=== PATIENT | female | born 1980 | race Caucasian/White ===

== ENCOUNTER 2018-01-01 09:22 | Emergency (ER) | payer SELFPAY ==
--- NOTE | 2018-01-01 10:06 | ER Document Report ---
HPI - HPI Patient complains to provider of: Right ankle injury Onset: Last week - Sunday Onset/Duration: Sudden Pain Level: 4 Context: 37-year-old smoker female inverted right ankle last week on Sunday. She has been using crutches and has not seen anybody for the injury. It is swollen and bruised painful lateral malleolus and proximal dorsal foot and plantar distal foot. No history of injury. Associated Symptoms: None Exacerbated by: Walking Relieved by: Denies Similar symptoms previously: No Recently seen / treated by doctor: No - ROS ROS below otherwise negative: Yes Systems Reviewed and Negative: Yes All other systems reviewed and negative - REPRODUCTIVE LMP: 12/03/17 Reproductive: DENIES: : Past Medical History - General Information source: Patient - Social History Smoking Status: Current Every Day Smoker Frequency of alcohol use: None Drug Abuse: None Lives with: Family Family History: Reviewed & Not Pertinent - Medical History Notes: lucinda yanes Past Surgical History: Reports: Hx Cholecystectomy - Immunizations Hx Diphtheria, Pertussis, Tetanus Vaccination: Yes Vertical Provider Document - CONSTITUTIONAL Agree With Documented VS: Yes Exam Limitations: No Limitations - INFECTION CONTROL TRAVEL OUTSIDE OF THE [place] IN LAST 30 DAYS: No - HEENT HEENT: Normocephalic - NECK Neck: Supple - RESPIRATORY O2 Sat by Pulse Oximetry: 98 - MUSCULOSKELETAL/EXTREMETIES Musculoskeletal/Extremeties: Tender, Edema, Eccymosis - lateral right malleolus dorsal mid and lateral right foot - NEURO Level of Consciousness: Awake, Alert Motor/Sensory: No Motor Deficit, No Sensory Deficit Notes: 2+ DP - DERM Integumentary: Warm, Dry Course - Re-evaluation Re-evalutation: 01/01/18 11:16 X-rays are negative per radiologist - Vital Signs Vital signs: Temp Pulse Resp BP Pulse Ox 98.5 F 77 14 116/76 98 01/01/18 09:28 01/01/18 09:28 01/01/18 09:28 01/01/18 09:28 01/01/18 09:28 Procedures - Immobilization Left Ankle Time completed: 11:17 Pre-Proc Neuro Vasc Exam: Normal Immobilizer type: Carlos wrap Performed by: PCT Post-Proc Neuro Vasc Exam: Normal Alignment checked and good: Yes Discharge - Discharge Clinical Impression: Right ankle sprain Condition: Good Disposition: HOME, SELF-CARE Instructions: Sprained Ankle ([facility]), Anti-Inflammatory Medication ([facility]), Carlos Wrap ([facility]), Use of Crutches ([facility]) Additional Instructions: Carlos wrap for comfort Ankle exercises as discussed Crutches See orthopedist if you continue to have problems Return to the emergency room any concerns Prescriptions: Ibuprofen [Motrin 800 mg Tablet] 800 mg PO Q8HP PRN #30 tablet PRN Reason: Forms: Return to Work Referrals: ZION HATFIELD MD [ACTIVE STAFF] - Follow up as needed
--- NOTE | 2018-01-01 10:58 | RADIOLOGY REPORT (SQ) ---
EXAM DESCRIPTION: ANKLE RIGHT COMPLETE; FOOT RIGHT COMPLETE COMPLETED DATE/TIME: 01/01/2018 10:38 am REASON FOR STUDY: inversion last sunday COMPARISON: None. NUMBER OF VIEWS: Six views. TECHNIQUE: AP, lateral, and oblique radiographic images acquired of the right foot and right ankle. LIMITATIONS: None. FINDINGS: MINERALIZATION: Normal. BONES: No acute fracture or dislocation. No worrisome bone lesions. JOINTS: No effusions. SOFT TISSUES: No soft tissue swelling. No foreign body. OTHER: No other significant finding. IMPRESSION: NEGATIVE STUDY OF THE RIGHT ANKLE. NO RADIOGRAPHIC EVIDENCE OF ACUTE INJURY. TECHNICAL DOCUMENTATION: JOB ID: [id number] [employer]- All Rights Reserved Reading location - IP/workstation name: [email or web address]
--- NOTE | 2018-01-01 10:58 | RADIOLOGY REPORT (SQ) ---
EXAM DESCRIPTION: ANKLE RIGHT COMPLETE; FOOT RIGHT COMPLETE COMPLETED DATE/TIME: 01/01/2018 10:38 am REASON FOR STUDY: inversion last sunday COMPARISON: None. NUMBER OF VIEWS: Six views. TECHNIQUE: AP, lateral, and oblique radiographic images acquired of the right foot and right ankle. LIMITATIONS: None. FINDINGS: MINERALIZATION: Normal. BONES: No acute fracture or dislocation. No worrisome bone lesions. JOINTS: No effusions. SOFT TISSUES: No soft tissue swelling. No foreign body. OTHER: No other significant finding. IMPRESSION: NEGATIVE STUDY OF THE RIGHT ANKLE. NO RADIOGRAPHIC EVIDENCE OF ACUTE INJURY. TECHNICAL DOCUMENTATION: JOB ID: [id number] [employer]- All Rights Reserved Reading location - IP/workstation name: [email or web address]
[2018-01-01 11:44] VITALS: BP 101/63
== END 2018-01-01 11:45 | disposition home or self-care (01) ==
LOC: ER 09:22
DX: S93.401A Sprain of unspecified ligament of right ankle, initial encounter (principal); S90.31XA Contusion of right foot, initial encounter; X50.0XXA Overexertion from strenuous movement or load, initial encounter; F17.200 Nicotine dependence, unspecified, uncomplicated
CPT/HCPCS: 99283

== ENCOUNTER → 2018-06-21 | Outpatient (CLI) | payer SELFPAY ==
--- NOTE | 2018-06-21 15:07 | RADIOLOGY REPORT (SQ) ---
EXAM DESCRIPTION: U/S [id number] TRNABD 1GES W/ODOP COMPLETED DATE/TIME: 06/21/2018 2:45 pm REASON FOR STUDY: ENCOUNTER FOR SUPERVISION OF OTHER NORMAL PREG, 1ST TRI Z34.81 ENCOUNTER FOR SUPR VSN OF NORMAL , FIRST TRIM COMPARISON: None. TECHNIQUE: Transvaginal static and realtime grayscale images acquired of the pelvis. Additional yasir cted spectral and color Doppler images recorded. All images stored on PACs. bHCG: Not available. LIMITATIONS: None. FINDINGS: UTERUS: No masses. No anomalies. GESTATIONAL SAC: Yes, mean diameter 3.0 cm. YOLK SAC: No. POLE: No. RIGHT ADNEXA: Ovary not identified. No adnexal free fluid. No adnexal masses. LEFT ADNEXA: Ovary not identified. No adnexal free fluid. No adnexal masses. FREE FLUID: None. OTHER: No other significant finding. IMPRESSION: POSSIBLE EARLY INTRAUTERINE . BHCG LEVEL NOT AVAILABLE FOR CORRELATION WITH US FINDINGS. CONSIDER F/U BHCG AND/OR ULTRASOUND FOR VERIFICATION AND TO EXCLUDE ECTOPIC . Trimester of : First - 0 to 13 weeks. TECHNICAL DOCUMENTATION: JOB ID: [id number] [employer]- All Rights Reserved Reading location - IP/workstation name: [email or web address]
== END ==
LOC: RAD 13:43
PROVIDERS: ATTEND Nurse Practitioner
DX: Z34.81 Encounter for supervision of other normal pregnancy, first trimester (principal)
CPT/HCPCS: 76801

== ENCOUNTER 2018-06-30 17:44 | Emergency (ER) | payer SELFPAY ==
[2018-06-30 17:51] VITALS: BP 110/61
[2018-06-30] MEDS ORDERED: NORMAL SALINE 1000 ML 1,000 ML IV ONE ×2 (18:33→20:39)
[2018-06-30] MEDS ORDERED: METOCLOPRAMIDE HCL 10 MG TABLET PO ONE (18:33)
--- NOTE | 2018-06-30 18:34 | ER Document Report ---
ED Medical Screen (RME) - General Chief Complaint: Vaginal Bleeding Stated Complaint: VAGINAL DISCHARGE Time Seen by Provider: 06/30/18 18:29 TRAVEL OUTSIDE OF THE [place]. IN LAST 30 DAYS: No - HPI Notes: 06/30/18 18:33 coming in vaginal bleeding brown discharge starting this morning care at the [facility] - Related Data Allergies/Adverse Reactions: Sulfa (Sulfonamide Antibiotics) Allergy (Verified 01/01/18 09:23) Past Medical History Renal/ Medical History: Denies: Hx Peritoneal Dialysis Past Surgical History: Reports: Hx Cholecystectomy - Immunizations Hx Diphtheria, Pertussis, Tetanus Vaccination: Yes Review of Systems - Review of Systems Constitutional: Other - Vaginal bleeding Physical Exam - Vital signs Vitals: Temp Pulse Resp BP Pulse Ox 98.2 F 79 15 110/61 100 06/30/18 17:50 06/30/18 17:50 06/30/18 17:50 06/30/18 17:50 06/30/18 17:50 - Respiratory Respiratory status: No respiratory distress Chest status: Nontender Breath sounds: Normal Chest palpation: Normal - Cardiovascular Rhythm: Regular Heart sounds: Normal auscultation Course - Vital Signs Vital signs: Temp Pulse Resp BP Pulse Ox 98.2 F 79 15 110/61 100 06/30/18 17:50 06/30/18 17:50 06/30/18 17:50 06/30/18 17:50 06/30/18 17:50 Doctor's Discharge - Discharge Referrals: ASHLI RUIZ, AIR BOATSWAIN [Primary Care Provider] - Follow up as needed
[2018-06-30 19:06] LABS: ABSOLUTE BASOPHILS # (AUTO) 0.1 10^3/uL (0.0-0.2); ABSOLUTE EOSINOPHILS # (AUTO) 0.3 10^3/uL (0.0-0.6); ABSOLUTE LYMPHOCYTES (AUTO) 2.6 10^3/uL (0.5-4.7); ABSOLUTE NEUT (AUTO) 6.7 10^3/uL (1.7-8.2); BASOPHILS % (AUTO) 0.6 % (0-2); EOSINOPHILS % (AUTO) 2.8 % (0-6); HEMATOCRIT 43.5 % (36.0-47.0); HEMOGLOBIN 14.7 g/dL (12.0-15.5); LYMPHOCYTES % (AUTO) 24.5 % (13-45); MEAN CORPUSCULAR HGB CONC 33.8 g/dL (32.0-36.0); MEAN CORPUSCULAR VOLUME 98 fl (80-97); MONOCYTES % (AUTO) 9.5 % (3-13); PLATELET COUNT 233 10^3/uL (150-450); RED BLOOD COUNT 4.45 10^6/uL (3.72-5.28); RED CELL DISTRIBUTION WIDTH 13.2 % (11.5-14.0); SEGMENTED NEUTROPHILS % (AUTO) 62.6 % (42-78); TOTAL CELLS COUNTED % (AUTO) 100 %; WHITE BLOOD COUNT 10.7 10^3/uL (4.0-10.5)
[2018-06-30 19:32] LABS: ALANINE AMINOTRANSFERASE 23 U/L (9-52); ALBUMIN 4.5 g/dL (3.5-5.0); ALKALINE PHOSPHATASE 38 U/L (38-126); ANION GAP 11 (5-19); ASPARTATE AMINO TRANSFERASE 17 U/L (14-36); BILIRUBIN,DIRECT 0.2 mg/dL (0.0-0.4); BILIRUBIN,TOTAL 0.5 mg/dL (0.2-1.3); BLOOD UREA NITROGEN 8 mg/dL (7-20); CALCIUM 9.6 mg/dL (8.4-10.2); CARBON DIOXIDE 27 mmol/L (22-30); CHLORIDE 104 mmol/L (98-107); GLUCOSE 83 mg/dL (75-110); LIPASE 92.4 U/L (23-300); POTASSIUM 3.8 mmol/L (3.6-5.0); SODIUM 141.9 mmol/L (137-145); TOTAL PROTEIN 7.4 g/dL (6.3-8.2)
--- NOTE | 2018-06-30 19:42 | RADIOLOGY REPORT (SQ) ---
EXAM DESCRIPTION: U/S OB TRANSVAGINAL W/O DOP COMPLETED DATE/TIME: 06/30/2018 7:19 pm REASON FOR STUDY: +preg bleeding COMPARISON: 06/21/2018. TECHNIQUE: Transvaginal static and realtime grayscale images acquired of the pelvis. Additional yasir cted spectral and color Doppler images recorded. All images stored on PACs. bHCG: Not available. LIMITATIONS: None. FINDINGS: UTERUS: No masses. No anomalies. GESTATIONAL SAC: Gestational sac measuring 2.9 cm. This correlates with an 8 week 0 day gestation. No pole or yolk sac identified. YOLK SAC: No. POLE: No. RIGHT ADNEXA: Ovary not identified. No adnexal free fluid. No adnexal masses. LEFT ADNEXA: Small cysts and follicles. No suspicious lesion. No adnexal free fluid. No adnexal masses. FREE FLUID: None. OTHER: No other significant finding. IMPRESSION: 1. Gestational sac with no associated yolk sac or pole. No change %period%since 06/21/2018. Presumed blighted ovum. Continued clinical followup is, however warranted. Trimester of : First - 0 to 13 weeks. TECHNICAL DOCUMENTATION: JOB ID: [id number] [employer]- All Rights Reserved Reading location - IP/workstation name: [email or web address]
[2018-06-30 20:02] LABS: APPEARANCE,URINE CLEAR; BILIRUBIN,URINE NEGATIVE (NEGATIVE); COLOR,URINE STRAW; GLUCOSE, URINE NEGATIVE (NEGATIVE); KETONES,URINE NEGATIVE (NEGATIVE); LEUKOCYTE ESTERASE,URINE NEGATIVE (NEGATIVE); NITRITE,URINE NEGATIVE (NEGATIVE); PROTEIN,URINE NEGATIVE (NEGATIVE); URINE SPECIFIC GRAVITY 1.003; UROBILINOGEN,URINE NEGATIVE mg/dL (<2.0)
[2018-06-30] MEDS ORDERED: ACETAMINOPHEN 325 MG TABLET PO ONE (20:39)
--- NOTE | 2018-06-30 21:21 | ER Document Report ---
ED GI/ - General Chief Complaint: Vaginal Bleeding Stated Complaint: VAGINAL DISCHARGE Time Seen by Provider: 06/30/18 18:29 Mode of Arrival: Ambulatory Information source: Patient Notes: She states she is presently about 8 weeks . Patient reports vaginal bleeding that started today. Patient states blood is older. And brown in color. Patient denies any urinary symptoms or fever. Patient does report some nausea and vomiting 2 episodes today. Patient does report some lower pelvic cramping. TRAVEL OUTSIDE OF THE [place] IN LAST 30 DAYS: No - HPI Patient complains to provider of: Pelvic pain, , Vaginal bleeding Onset: This morning Timing/Duration: Waxing and waning Quality of pain: Cramping Pain Level: 2 Context: Location: Pelvis Vaginal bleeding (Compared to normal period): Dark brown Menstrual period history: Associated symptoms: denies: Dysuria, Fever, Loss of appetite, Nausea, Urinary hesitancy, Urinary frequency, Urinary retention, Vomiting Exacerbated by: Denies Relieved by: Denies Similar symptoms previously: No Recently seen / treated by doctor: No - Related Data Allergies/Adverse Reactions: Sulfa (Sulfonamide Antibiotics) Allergy (Verified 01/01/18 09:23) Past Medical History - General Information source: Patient - Social History Smoking Status: Current Every Day Smoker Smoking Education Provided: Yes Frequency of alcohol use: None Drug Abuse: None Occupation: respiratory assistant Lives with: Spouse/Significant other Family History: Reviewed & Not Pertinent Patient has suicidal ideation: No Patient has homicidal ideation: No - Medical History Medical History: Negative Renal/ Medical History: Denies: Hx Peritoneal Dialysis Past Surgical History: Reports: Hx Cholecystectomy - Immunizations Hx Diphtheria, Pertussis, Tetanus Vaccination: Yes Review of Systems - Review of Systems Constitutional: No symptoms reported. denies: Fever EENT: No symptoms reported Cardiovascular: No symptoms reported. denies: Chest pain, Syncope, Dizziness, Lightheaded Respiratory: No symptoms reported Gastrointestinal: Abdominal pain, Nausea, Vomiting. denies: Diarrhea Genitourinary: No symptoms reported. denies: Dysuria, Discharge Female Genitourinary: , Vaginal bleeding Musculoskeletal: No symptoms reported. denies: Back pain Skin: No symptoms reported Hematologic/Lymphatic: No symptoms reported Neurological/Psychological: No symptoms reported Physical Exam - Vital signs Vitals: Temp Pulse Resp BP Pulse Ox 98.2 F 79 15 110/61 100 06/30/18 17:50 06/30/18 17:50 06/30/18 17:50 06/30/18 17:50 06/30/18 17:50 - General General appearance: Appears well, Alert In distress: None - Respiratory Respiratory status: No respiratory distress Chest status: Nontender Breath sounds: Normal. No: Rales, Rhonchi, Stridor, Wheezing Chest palpation: Normal - Cardiovascular Rhythm: Regular Heart sounds: S1 appreciated, S2 appreciated Murmur: No - Abdominal Inspection: Normal Distension: No distension Bowel sounds: Normal Tenderness: Tender - lower pelvic Organomegaly: No organomegaly - Genitourinary External exam: Normal Speculum exam: Cervix closed Vaginal bleeding: Mild - Back Back: Normal, Nontender. No: CVA tenderness - Extremities General upper extremity: Normal inspection, Normal ROM General lower extremity: Normal inspection, Normal ROM - Neurological Neuro grossly intact: Yes Cognition: Normal [place] Coma Scale Eye Opening: Spontaneous [place] Coma Scale Verbal: Oriented Michael Coma Scale Motor: Obeys Commands [place] Coma Scale Total: 15 - Psychological Associated symptoms: Normal affect, Normal mood - Skin Skin Temperature: Warm Skin Moisture: Dry Skin Color: Normal Course - Re-evaluation Re-evalutation: 07/01/18 Patient with a gestational sac noted on ultrasound but without any yolk sac or pole. Patient advised of concern about possible blighted ovum. Patient with quantitative hCG of over 14,000. Patient given a order for outpatient repeat hCG in 48 hours. Patient does have an appointment with her [employer] in 2 days for recheck. Hemodynamic stable and pain is manageable with Tylenol. Good return precautions given. - Vital Signs Vital signs: Temp Pulse Resp BP Pulse Ox 98.2 F 79 15 110/61 100 06/30/18 17:50 06/30/18 17:50 06/30/18 17:50 06/30/18 17:50 06/30/18 17:50 - Laboratory Result Diagrams: 06/30/18 18:53 06/30/18 18:53 Laboratory results interpreted by me: 06/30/18 06/30/18 06/30/18 18:53 18:53 19:25 WBC 10.7 H MCV 98 H Creatinine 0.51 L Beta HCG, Quant 93928.00 H Urine Blood SMALL H 06/30/18 21:57 Labs- Entire Visit 06/30/18 06/30/18 06/30/18 18:53 18:53 18:53 WBC 10.7 H RBC 4.45 Hgb 14.7 Hct 43.5 MCV 98 H MCH 33.0 MCHC 33.8 RDW 13.2 Plt Count 233 Seg Neutrophils % 62.6 Lymphocytes % 24.5 Monocytes % 9.5 Eosinophils % 2.8 Basophils % 0.6 Absolute Neutrophils 6.7 Absolute Lymphocytes 2.6 Absolute Monocytes 1.0 Absolute Eosinophils 0.3 Absolute Basophils 0.1 Sodium 141.9 Potassium 3.8 Chloride 104 Carbon Dioxide 27 Anion Gap 11 BUN 8 Creatinine 0.51 L Est GFR ( Amer) > 60 Est GFR (Non-Af Amer) > 60 Glucose 83 Calcium 9.6 Total Bilirubin 0.5 Direct Bilirubin 0.2 Neonat Total Bilirubin Not Reportable Neonat Direct Bilirubin Not Reportable Neonat Indirect Bili Not Reportable AST 17 ALT 23 Alkaline Phosphatase 38 Total Protein 7.4 Albumin 4.5 Lipase 92.4 Beta HCG, Quant 09884.00 H Total Beta HCG POSITIVE Urine Color Urine Appearance Urine pH Ur Specific [place] Urine Protein Urine Glucose (UA) Urine Ketones Urine Blood Urine Nitrite Urine Bilirubin Urine Urobilinogen Ur Leukocyte Esterase Urine WBC (Auto) Urine RBC (Auto) Urine Bacteria (Auto) Squamous Epi Cells Auto Urine Ascorbic Acid Epi Cells (Wet Prep) Bacteria (Wet Prep) Trichomonas (Wet Prep) Vaginal WBC Vaginal RBC Vaginal Yeast Blood Type A POSITIVE Rhogam Indicated RHOGAM NOT INDICATED 06/30/18 06/30/18 19:25 21:20 WBC RBC Hgb Hct MCV MCH MCHC RDW Plt Count Seg Neutrophils % Lymphocytes % Monocytes % Eosinophils % Basophils % Absolute Neutrophils Absolute Lymphocytes Absolute Monocytes Absolute Eosinophils Absolute Basophils Sodium Potassium Chloride Carbon Dioxide Anion Gap BUN Creatinine Est GFR ( Amer) Est GFR (Non-Af Amer) Glucose Calcium Total Bilirubin Direct Bilirubin Neonat Total Bilirubin Neonat Direct Bilirubin Neonat Indirect Bili AST ALT Alkaline Phosphatase Total Protein Albumin Lipase Beta HCG, Quant Total Beta HCG Urine Color STRAW Urine Appearance CLEAR Urine pH 7.0 Ur Specific [place] 1.003 Urine Protein NEGATIVE Urine Glucose (UA) NEGATIVE Urine Ketones NEGATIVE Urine Blood SMALL H Urine Nitrite NEGATIVE Urine Bilirubin NEGATIVE Urine Urobilinogen NEGATIVE Ur Leukocyte Esterase NEGATIVE Urine WBC (Auto) 1 Urine RBC (Auto) 0 Urine Bacteria (Auto) TRACE Squamous Epi Cells Auto 1 Urine Ascorbic Acid NEGATIVE Epi Cells (Wet Prep) 3+ EPITHELIALS SEEN Bacteria (Wet Prep) 4+ BACTERIA SEEN Trichomonas (Wet Prep) NO TRICHOMONAS SEEN Vaginal WBC 1+ WBCS SEEN Vaginal RBC 1+ RBCS SEEN Vaginal Yeast NO YEAST SEEN Blood Type Rhogam Indicated - Diagnostic Test Radiology reviewed: Reports reviewed Discharge - Discharge Clinical Impression: Vagina bleeding, Bacterial vaginosis, test positive Condition: Stable Disposition: HOME, SELF-CARE Instructions: Ectopic Precaution ([facility]), Vaginosis, Bacterial ([facility]) Additional Instructions: Return immediately for any new or worsening symptoms Followup with your primary care provider, call tomorrow to make a followup appointment Return to lab in 48 hours for repeat blood test. Let your primary doctor know that she had a repeat test performed. Keep your appointment on Sunday as scheduled. You will need a follow-up ultrasound to further evaluate status. Prescriptions: Metronidazole [Flagyl 500 mg Tablet] 500 mg PO BID #14 tablet Forms: Follow-Up Laboratory Testing, Smoking Cessation Education, Return to Work Referrals: ASHLI RUIZ, WALTER [NO LOCAL MD] - Follow [facility] as needed [facility] - 07/02/18
[2018-06-30 21:35] LABS: BACTERIA (WET MOUNT) 4+ BACTERIA SEEN; EPITHELIALS (WET MOUNT) 3+ EPITHELIALS SEEN; RBCS (WET MOUNT) 1+ RBCS SEEN; T.VAGINALIS (WET MOUNT) NO TRICHOMONAS SEEN; WBCS (WET MOUNT) 1+ WBCS SEEN; YEAST (WET MOUNT) NO YEAST SEEN
[2018-06-30 22:57] LABS: CHLAM PCR NOT DETECTED (NOT DETECT); GON PCR NOT DETECTED (NOT DETECT)
== END 2018-06-30 22:20 | disposition home or self-care (01) ==
LOC: ER 17:44
DX: O46.90 Antepartum hemorrhage, unspecified, unspecified trimester (principal); O23.599 Infection of other part of genital tract in pregnancy, unspecified trimester; B96.89 Other specified bacterial agents as the cause of diseases classified elsewhere; R10.2 Pelvic and perineal pain; O21.9 Vomiting of pregnancy, unspecified; O99.330 Smoking (tobacco) complicating pregnancy, unspecified trimester; Z3A.00 Weeks of gestation of pregnancy not specified; O26.899 Other specified pregnancy related conditions, unspecified trimester; Z88.2 Allergy status to sulfonamides
CPT/HCPCS: 99284; 96360; 96361; 86900; 86901; 36415; 87210; 84702; 83690; 85025; 80053; 81001; 87491; 87591; 76817; J7030

== ENCOUNTER 2019-04-07 09:05 | Emergency (ER) | payer SELFPAY ==
[2019-04-07 09:10] VITALS: BP 136/78
[2019-04-07] MEDS ORDERED: TETRACAINE HCL 0.5% OPH SOLN 4 ML ONE (10:02)
[2019-04-07] MEDS ORDERED: CIPROFLOXACIN HCL/DEXAMETH OTIC DROP 7.5 ML OT ONE (10:38)
[2019-04-07] MEDS ORDERED: ERYTHROMYCIN 0.5% OPH OINTMENT 3.5 GM (ER DISP) OD ONE (10:40)
--- NOTE | 2019-04-07 10:44 | ER Document Report ---
HPI - HPI Patient complains to provider of: Right eye irritation Time Seen by Provider: 04/07/19 10:11 Pain Level: 2 Context: Patient is a 38-year-old female presents to the emergency department for right eye Tatian. States she "knows I wear a lot of make-up" but is denying any injury or foreign body to her right eye. Patient states she does have a generalized foreign body sensation. States she was rubbing her eye last evening and something "may have fallen out." Patient's denying that she wears contact lens or glasses. States generalized photophobia in the right eye. Patient denies any discharge from the right eye states "minor tearing." - CONSTITUTIONAL Constitutional: DENIES: Fever, Chills - EENT EENT: REPORTS: Eye problems - right eye. DENIES: Sore Throat, Ear Pain - NEURO Neurology: DENIES: Headache, Weakness, Vision blurred, Dizzinesss / Vertigo - CARDIOVASCULAR Cardiovascular: DENIES: Chest pain - RESPIRATORY Respiratory: DENIES: Trouble Breathing, Coughing - GASTROINTESTINAL Gastrointestinal: DENIES: Abdominal Pain, Black / Bloody Stools - URINARY Urinary: DENIES: Dysuria, Urgency, Frequency - REPRODUCTIVE Reproductive: DENIES: :, Postmenopausal, Abnormal bleeding / discharge - MUSCULOSKELETAL Musculoskeletal: DENIES: Extremity pain Past Medical History - General Information source: Patient - Social History Smoking Status: Current Every Day Smoker Chew tobacco use (# tins/day): No Frequency of alcohol use: Social Drug Abuse: None Family History: Reviewed & Not Pertinent Patient has suicidal ideation: No Patient has homicidal ideation: No Renal/ Medical History: Denies: Hx Peritoneal Dialysis Past Surgical History: Reports: Hx Cholecystectomy - Immunizations Hx Diphtheria, Pertussis, Tetanus Vaccination: Yes Vertical Provider Document - CONSTITUTIONAL Agree With Documented VS: Yes Notes: GENERAL: Alert, interacts well. No acute distress. HEAD: Normocephalic, atraumatic. EYES: Pupils equal, round, and reactive to light. Extraocular movements intact and painless. No obvious conjunctival injection noted, no upper or lower eyelid erythema or swelling, no proptosis noted. ENT: Oral mucosa moist, tongue midline. NECK: Full range of motion. Supple. Trachea midline. LUNGS: Clear to auscultation bilaterally, no wheezes, rales, or rhonchi. No respiratory distress. HEART: Regular rate and rhythm. No murmur ABDOMEN: Soft, non-tender. Non-distended. Bowel sounds present in all 4 quadrants. EXTREMITIES: Moves all 4 extremities spontaneously. No edema, normal radial and dorsalis pedis pulses bilaterally. No cyanosis. BACK: no cervical, thoracic, lumbar midline tenderness. No saddle anesthesia, normal distal neurovascular exam. NEUROLOGICAL: Alert and oriented x3. Normal speech. cranial nerves II through XII grossly intact PSYCH: Normal affect, normal mood. SKIN: Warm, dry, normal turgor. No rashes or lesions noted. - INFECTION CONTROL TRAVEL OUTSIDE OF THE [place] IN LAST 30 DAYS: No Course - Re-evaluation Re-evalutation: 04/07/19 10:43 Floor seen stain revealed 2 different corneal abrasions 1 at 12:00, 1 at 2:00, 1 mm x 1 mm both above the iris. I did flip patient's right eyelid showed no obvious foreign bodies. Discussed use of antibiotic ointment And close return precautions should the discomfort not improve in 24 hours. Patient voices understanding, stable for discharge This medical record was dictated with voice recognizing software. There may be grammatical, syntax errors that are unintended. - Vital Signs Vital signs: Temp Pulse Resp BP Pulse Ox 98.4 F 103 H 18 136/78 H 95 04/07/19 09:09 04/07/19 09:09 04/07/19 09:09 04/07/19 09:09 04/07/19 09:09 Discharge - Discharge Clinical Impression: Corneal abrasion Qualifiers: Encounter type: initial encounter Laterality: right Qualified Code(s): S05.01XA - Injury of conjunctiva and corneal abrasion without foreign body, right eye, initial encounter Condition: Stable Disposition: HOME, SELF-CARE Instructions: Corneal Abrasion ([facility]) Additional Instructions: As we discussed you have been seen and treated in the emergency department for a corneal abrasion. This is a scratch on the outer part of your eye. Please make sure you are using antibiotic ointment as we discussed. Please also make sure you follow-up with your primary care provider. Should you continue with generalized pain despite antibiotic use you should return to the emergency room for repeat evaluation. Please also return to the emergency room for any other concerns. Prescriptions: Erythromycin Base [Erythromycin Oph 1 gm Oint Ud] 1 applic OD Q6 5 Days #1 tube Forms: Return to Work Referrals: YAO CARDENAS MD [Primary Care Provider] - Follow up as needed
== END 2019-04-07 10:49 | disposition home or self-care (01) ==
LOC: ER 09:05
DX: S05.01XA Injury of conjunctiva and corneal abrasion without foreign body, right eye, initial encounter (principal); H57.11 Ocular pain, right eye; H53.141 Visual discomfort, right eye; X58.XXXA Exposure to other specified factors, initial encounter; F17.200 Nicotine dependence, unspecified, uncomplicated
CPT/HCPCS: 99283; J3490

== ENCOUNTER 2020-06-02 09:12 | Emergency (ER) | payer SELFPAY ==
[2020-06-02 10:20] LABS: ABSOLUTE BASOPHILS # (AUTO) 0.1 10^3/uL (0.0-0.2); ABSOLUTE EOSINOPHILS # (AUTO) 0.1 10^3/uL (0.0-0.6); ABSOLUTE LYMPHOCYTES (AUTO) 2.6 10^3/uL (0.5-4.7); ABSOLUTE MONOCYTES (AUTO) 1.2 10^3/uL (0.1-1.4); ABSOLUTE NEUT (AUTO) 10.4 10^3/uL (1.7-8.2); BASOPHILS % (AUTO) 0.7 % (0-2); EOSINOPHILS % (AUTO) 0.9 % (0-6); HEMOGLOBIN 15.4 g/dL (12.0-15.5); LYMPHOCYTES % (AUTO) 18.2 % (13-45); MEAN CORPUSCULAR HEMOGLOBIN 33.5 pg (27.0-33.4); MEAN CORPUSCULAR VOLUME 96 fl (80-97); MONOCYTES % (AUTO) 8.4 % (3-13); PLATELET COUNT 253 10^3/uL (150-450); RED CELL DISTRIBUTION WIDTH 13.2 % (11.5-14.0); SEGMENTED NEUTROPHILS % (AUTO) 71.8 % (42-78); TOTAL CELLS COUNTED % (AUTO) 100 %; WHITE BLOOD COUNT 14.5 10^3/uL (4.0-10.5)
[2020-06-02 10:41] LABS: ALBUMIN 4.5 g/dL (3.5-5.0); ALKALINE PHOSPHATASE 90 U/L (38-126); ANION GAP 11 (5-19); ASPARTATE AMINO TRANSFERASE 51 U/L (14-36); BILIRUBIN,DIRECT 0.2 mg/dL (0.0-0.4); BILIRUBIN,TOTAL 1.1 mg/dL (0.2-1.3); BLOOD UREA NITROGEN 12 mg/dL (7-20); CALCIUM 10.1 mg/dL (8.4-10.2); CARBON DIOXIDE 21 mmol/L (22-30); CHLORIDE 101 mmol/L (98-107); GLUCOSE 102 mg/dL (75-110); POTASSIUM 3.7 mmol/L (3.6-5.0); TOTAL PROTEIN 7.6 g/dL (6.3-8.2)
[2020-06-02 10:55] LABS: APPEARANCE,URINE SLIGHTLY-CLOUDY; BILIRUBIN,URINE SMALL (NEGATIVE); COLOR,URINE AMBER; GLUCOSE, URINE NEGATIVE (NEGATIVE); KETONES,URINE 80 mg/dL (NEGATIVE); LEUKOCYTE ESTERASE,URINE NEGATIVE (NEGATIVE); NITRITE,URINE NEGATIVE (NEGATIVE); PROTEIN,URINE 100 mg/dL (NEGATIVE); URINE SPECIFIC GRAVITY 1.027
[2020-06-02] MEDS ORDERED: METOCLOPRAMIDE HCL INJ/PF 10 MG/2 ML SDV IV ONE (11:21)
[2020-06-02] MEDS ORDERED: DIPHENHYDRAMINE HCL 50 MG/ML VIAL IV ONE (11:21)
--- NOTE | 2020-06-02 11:27 | ER Document Report ---
ED General - General Chief Complaint: Nausea/Vomiting Stated Complaint: VOMITING Time Seen by Provider: 06/02/20 10:51 Primary Care Provider: YAO CARDENAS MD [Primary Care Provider] - Follow up as needed TRAVEL OUTSIDE OF THE [place] IN LAST 30 DAYS: No - HPI Notes: Patient is a 40-year-old female, G4, P2, first day last menstrual period February 07, who presents to the emergency department for evaluation of nausea and vomiting. She states she is been vomiting, she thought it was just morning sickness. She states that over the last 4 days she has had increased vomiting, it seems to be all the time. She states she really cannot keep anything down, she feels overall weak. She has had some loose stools. She denies any fevers or chills. She states she is had a burning pelvic pain ongoing since Sunday. She denies any vaginal bleeding. She states that she has not had any care as of yet. She states she needs to get the health department financial information about her household, and her boyfriend as of yet will not give her that information. She is taking her vitamin daily. - Related Data Allergies/Adverse Reactions: Sulfa (Sulfonamide Antibiotics) Allergy (Verified 04/07/19 09:07) Home Medications: vitamin Past Medical History - General Information source: Patient - Social History Smoking Status: Current Every Day Smoker Frequency of alcohol use: None Drug Abuse: None Family History: Reviewed & Not Pertinent Patient has homicidal ideation: No Renal/ Medical History: Denies: Hx Peritoneal Dialysis Past Surgical History: Reports: Hx Cholecystectomy - Immunizations Hx Diphtheria, Pertussis, Tetanus Vaccination: Yes Review of Systems - Review of Systems Constitutional: Weakness Gastrointestinal: See HPI Female Genitourinary: See HPI -: Yes All other systems reviewed and negative Physical Exam - Vital signs Vitals: Temp 98.7 F 06/02/20 09:13 - Notes Notes: This is a very timid appearing 40-year-old female, who appears her stated age, no acute distress. Vital signs reviewed, please refer to chart. Head is normocephalic, atraumatic. Pupils equal round, reactive to light. Neck is supple without meningismus. Heart is regular rate and rhythm. Lungs are clear to auscultation bilaterally. Abdomen is soft, nontender, normoactive bowel sounds throughout. Palpable uterine fundus above the pelvic bone without tenderness. Extremities without cyanosis, clubbing. Posterior calves are nonte nder. Peripheral pulses are equal. Skin is warm and dry. Patient is awake, alert, neurological exam is nonfocal. Course - Re-evaluation Re-evalutation: 06/02/20 11:26 Patient presents the emergency department for evaluation. Laboratory investigations were obtained. She does have ketones in her urine, findings consistent with poor oral intake. We will give her IV fluids. We will give her Reglan and Benadryl to help with her nausea. Will consult case management in regards to getting this patient the appropriate care she needs for her . At this point she is stable, we will continue to monitor. 06/02/20 15:03 Patient is imaging can firm C 16-week gestation. Her labs showed some dehydration, treated with IV fluids. Her nausea is improved with Reglan and Benadryl. Patient is advised she needs to quit smoking marijuana, as her drug screen was positive for this. She voiced understanding. Otherwise she is given instructions on follow-up as an outpatient with OB, and is to return to the ED with worsening. - Vital Signs Vital signs: Temp Pulse Resp BP Pulse Ox 98.7 F 80 16 114/80 99 06/02/20 09:37 06/02/20 09:37 06/02/20 09:37 06/02/20 09:37 06/02/20 09:37 - Laboratory Result Diagrams: 06/02/20 10:00 06/02/20 10:00 Laboratory results interpreted by me: 06/02/20 06/02/20 06/02/20 10:00 10:00 10:30 WBC 14.5 H MCH 33.5 H Absolute Neuts (auto) 10.4 H Sodium 133.2 L Carbon Dioxide 21 L Creatinine 0.43 L AST 51 H ALT 70 H Urine Protein 100 H Urine Ketones 80 H Urine Bilirubin SMALL H Urine Urobilinogen 4.0 H Urine HCG, Qual POSITIVE H - Diagnostic Test Radiology reviewed: Reports reviewed Radiology results interpreted by me: 06/02/20 15:04 Obstetrics Ultrasound 06/02/20 11:22 IMPRESSION: LIVING INTRAUTERINE . ESTIMATED GESTATIONAL AGE 16 weeks, 4 days Trimester of : Second trimester - 13 weeks 1 day to 27 weeks 6 days. Discharge - Discharge Clinical Impression: Vomiting affecting Condition: Stable Disposition: HOME, SELF-CARE Instructions: Vomiting ([facility]) Additional Instructions: Rest, stay well hydrated with small, frequent sips of fluids. Follow-up with OB as soon as possible. You can take [id number] Unisom, also known as doxylamine, as needed for nausea. You can take this twice daily. Return to the emergency department if you develop worsening or new concerning symptoms of any sort. Referrals: YAO CARDENAS MD [Primary Care Provider] - Follow up as needed
[2020-06-02] MEDS: NORMAL SALINE 1000 ML 1,000 ML IV PRN ×2 (11:47→14:26)
[2020-06-02] MEDS ORDERED: KETOROLAC TROMETHAMINE 60 MG/2 ML SDV IM ONE (13:54)
[2020-06-02] MEDS ORDERED: OXYCODONE-ACETAMINOPHEN 5-325 MG TABLET PO ONE (13:54)
[2020-06-02 14:31] LABS: URINE AMPHETAMINES SCREEN NEGATIVE; URINE BARBITURATES SCREEN NEGATIVE; URINE BENZODIAZEPINES SCREEN NEGATIVE; URINE COCAINE SCREEN NEGATIVE; URINE MARIJUANA (THC) SCREEN UNCONFIRMED POSITIVE; URINE METHADONE SCREEN NEGATIVE; URINE PHENCYCLIDINE SCREEN NEGATIVE
--- NOTE | 2020-06-02 14:32 | RADIOLOGY REPORT (SQ) ---
EXAM DESCRIPTION: U/S OB 14+ TRNABD 1GES W/O DOP IMAGES COMPLETED DATE/TIME: 06/02/2020 2:21 pm REASON FOR STUDY: Pelvic pain, , FDLMP 412 COMPARISON: None. TECHNIQUE: Static and Dynamic grayscale imaging performed of gravid uterus using transabdominal appr oach. Additional selected color Doppler and spectral images recorded. All stored on PACS. LIMITATIONS: None. FINDINGS: FETUSES SEEN:1 EGA: 16 weeks 4 days Calculated using BPD,FL,HC,AC documented on images. No discrepancy with clinica l dates. SILVESTRE: 11/13/2020 EFW: 155 grams PERCENTILE: Not applicable. Fetus less than or equal to 20 weeks gestation. PAZ: Adequate PLACENTA: Anterior PRESENTATION: Cephalic. HEART RATE: 158 beats per minute. FOUR CHAMBER HEART: Visualized. ANATOMY: Not assessed. MATERNAL ADNEXA: Maternal ovaries not visualized. CERVICAL LENGTH: 3.5 cm Closed. OTHER: No other significant finding. IMPRESSION: LIVING INTRAUTERINE . ESTIMATED GESTATIONAL AGE 16 weeks, 4 days Trimester of : Second trimester - 13 weeks 1 day to 27 weeks 6 days. TECHNICAL DOCUMENTATION: JOB ID: [id number] 2010 [employer]- All Rights Reserved Reading location - IP/workstation name: [email or web address]
[2020-06-02 15:32] VITALS: BP 106/54
== END 2020-06-02 15:40 | disposition home or self-care (01) ==
LOC: ER 09:12
DX: O21.9 Vomiting of pregnancy, unspecified (principal); Z3A.16 16 weeks gestation of pregnancy
CPT/HCPCS: 99284; 96372; 96361; 96374; 96375; 36415; 85025; 81025; 80053; 81001; 80307; 76805; J1200; J1885; J2765; J7030

== ENCOUNTER 2020-11-01 00:39 | Inpatient (IN) | payer MEDICAID ==
[2020-11-01] MEDS ORDERED: RINGERS SOLUTION,LACTATED 500 ML IV ONE (01:03)
[2020-11-01] MEDS ORDERED: RINGERS SOLUTION,LACTATED 1,000 ML IV ONE (01:03)
[2020-11-01] MEDS ORDERED: VANCOMYCIN HCL INJ 1000 MG VIAL ONE (01:13)
[2020-11-01] MEDS ORDERED: VANCOMYCIN HCL INJ 1000 MG VIAL IV PRN (01:14)
[2020-11-01] MEDS ORDERED: MISOPROSTOL 0.2 MG TABLET ONE (01:27)
[2020-11-01] MEDS ORDERED: LIDOCAINE 1% INJ-PF (10 MG/ML) 30 ML SDV ONE (01:27)
[2020-11-01] MEDS ORDERED: OXYTOCIN 10 UNIT/ML VIAL ONE (01:27)
--- NOTE | 2020-11-01 01:31 | Admission Physical ---
Datetime Report Generated by CPN: 11/01/2020 01:31 CURRENT ADMISSION Chief Complaint: Uterine Contractions Indication for Induction: Not Applicable Admit Impression : Term, Intrauterine Admit Plan: Admit to Unit; Initiate Labor Protocol ALLERGIES Medication Allergies: Yes Medication Allergies: Sulfa (Sulfonamide Antibiotics) (04/07/2019)/penicillin Latex: No Latex Allergies Food Allergies: no Environmental Allergies: no OBSTETRICAL HISTORY EDC: 11/14/2020 00:00 : 4 Para: 2 Term: 2 : 0 SAB: 1 IAB: 0 Ectopic: 0 Livin Cesareans: 0 VBACs: 0 Multiple Births: 0 Gestational Diabetes: No Rh Sensitization: No Incompetent Cervix: No ALICIA: No Infertility: No ART Treatment: No Uterine Anomaly: No IUGR: No Hx Previous C/S: No Macrosomia: No Hx Loss/Stillborn: No PIH: No Hx : No Placenta Previa/Abruption: No Depression/PP Depression: Yes PTL/PROM: No Post Hemorrhage: No Current Procedures: Ultrasound Obstetrical History Comments: 18 week loss in 2017 MEDICAL HISTORY Diabetes: No Blood Transfusion: No Pulmonary Disease (Asthma, TB): No Breast Disease: No Hypertension: No Shipper And Receiving Surgery: No Heart Disease: No Hosp/Surgery: No Autoimmune Disorder: No Anesthetic Complications: No Kidney Disease: No Abnormal Pap Smear: No Neuro/Epilepsy: No Psychiatric Disorders: Yes Other Medical Diseases: No Hepatitis/Liver Disease: No Significant Family History: No Varicosities/Phlebitis: No Trauma/Violence : No Thyroid Dysfunction: No Medical History Comments: depression/anxiety chantal rajput dz INFECTIOUS HISTORY Gonorrhea: No Genital Herpes: No Chlamydia: No Tuberculosis: No Syphilis: No Hepatitis: No HIV/AIDS Exposure: No Rash or Viral Illness: No HPV: No PHYSICAL EXAM General: Normal HEENT: Normal Neurologic: Normal Thyroid: Normal Heart: Normal Lungs: Normal Breast: Deferred Back: Normal Abdomen: Normal Genitourinary Exam: Normal Extremities: Normal DTRs: Normal Pelvic Type: Adequate Vital Signs: Reviewed VAGINAL EXAM Dilatation: 5 Effacement: 90 Station: 0 MEMBRANES Pooling: Negative Membranes: Intact FETUS A EGA: 38.1 Monitoring: External US FHR- Baseline: 120 Variability: Moderate 6-25bpm Decelerations: None FHR Category: Category I Estimated Weight (gm): 3300 Presentation: Vertex Admit Comment: anticipate delivery INFORMED CONSENT Signature: with User ID: [email or web address]
[2020-11-01] MEDS ORDERED: MAG HYDROX/AL HYDROX/SIMETH SUSP 30 ML UDCUP PO PRN (01:35)
[2020-11-01] MEDS ORDERED: GLYCERIN/WITCH HAZEL LEAF 1 EACH MED..WIPE TP PRN (01:35)
[2020-11-01] MEDS ORDERED: PSEUDOEPHEDRINE HCL 30 MG TABLET PO PRN (01:35)
[2020-11-01] MEDS ORDERED: MEASLES,MUMPS&RUBELLA VACC/PF 0.5 ML VIAL SUBCUT PRN (01:35)
[2020-11-01] MEDS ORDERED: ACETAMINOPHEN 325 MG TABLET PO PRN (01:35)
[2020-11-01] MEDS ORDERED: ACETAMINOPHEN WITH CODEINE #3 TABLET ONE (01:35)
[2020-11-01] MEDS ORDERED: DIPHENHYDRAMINE HCL 25 MG CAPSULE PO PRN (01:35)
[2020-11-01] MEDS ORDERED: VARICELLA VACC/PF (1350 UNIT/0.5 ML) 0.5 ML VIAL SUBCUT PRN (01:35)
[2020-11-01] MEDS ORDERED: DIPH/PERTUSS(ACELL)/TETANUS VAC/PF 0.5 ML SYR (>=10YO) IM PRN (01:35)
[2020-11-01] MEDS ORDERED: DIBUCAINE 1% OINTMENT 28 GM TP PRN (01:35)
[2020-11-01] MEDS ORDERED: ZOLPIDEM TARTRATE 5 MG TABLET PO PRN (01:35)
[2020-11-01] MEDS ORDERED: ACETAMINOPHEN 650 MG SUPP.RECT PR PRN (01:35)
[2020-11-01] MEDS ORDERED: ACETAMINOPHEN WITH CODEINE #3 TABLET PO PRN ×2 (01:35)
[2020-11-01] MEDS ORDERED: FAMOTIDINE 20 MG TABLET PO PRN (01:35)
[2020-11-01] MEDS ORDERED: OXYTOCIN/0.9 % SODIUM CHLORIDE 30 UNIT/500 ML RTUINJ IV PRN (01:35)
[2020-11-01] MEDS ORDERED: BENZOCAINE/MENTHOL AEROSOL SPRAY 56 ML TOP PRN (01:35)
[2020-11-01] MEDS ORDERED: MAGNESIUM HYDROXIDE SUSP 30 ML UDCUP PO PRN (01:35)
[2020-11-01] MEDS ORDERED: VANCOMYCIN HCL 2,000 MG in DEXTROSE 5%-WATER 500 ML IV ONE (01:45)
[2020-11-01 01:51] LABS: ABSOLUTE BASOPHILS # (AUTO) 0.1 10^3/uL (0.0-0.2); ABSOLUTE EOSINOPHILS # (AUTO) 0.1 10^3/uL (0.0-0.6); ABSOLUTE LYMPHOCYTES (AUTO) 3.2 10^3/uL (0.5-4.7); ABSOLUTE MONOCYTES (AUTO) 1.2 10^3/uL (0.1-1.4); ABSOLUTE NEUT (AUTO) 10.1 10^3/uL (1.7-8.2); BASOPHILS % (AUTO) 0.4 % (0-2); HEMATOCRIT 39.8 % (36.0-47.0); HEMOGLOBIN 13.4 g/dL (12.0-15.5); LYMPHOCYTES % (AUTO) 21.6 % (13-45); MEAN CORPUSCULAR HEMOGLOBIN 31.9 pg (27.0-33.4); MEAN CORPUSCULAR HGB CONC 33.8 g/dL (32.0-36.0); MEAN CORPUSCULAR VOLUME 95 fl (80-97); MONOCYTES % (AUTO) 8.1 % (3-13); PLATELET COUNT 215 10^3/uL (150-450); RED BLOOD COUNT 4.21 10^6/uL (3.72-5.28); RED CELL DISTRIBUTION WIDTH 13.5 % (11.5-14.0); SEGMENTED NEUTROPHILS % (AUTO) 68.9 % (42-78); TOTAL CELLS COUNTED % (AUTO) 100 %; WHITE BLOOD COUNT 14.6 10^3/uL (4.0-10.5)
[2020-11-01 01:53] LABS: APPEARANCE,URINE CLOUDY; BILIRUBIN,URINE NEGATIVE (NEGATIVE); COLOR,URINE YELLOW; GLUCOSE, URINE NEGATIVE (NEGATIVE); KETONES,URINE 20 mg/dL (NEGATIVE); LEUKOCYTE ESTERASE,URINE LARGE (NEGATIVE); NITRITE,URINE NEGATIVE (NEGATIVE); PROTEIN,URINE 30 mg/dL (NEGATIVE); URINE SPECIFIC GRAVITY 1.012
[2020-11-01 02:21] LABS: URINE AMPHETAMINES SCREEN NEGATIVE; URINE BARBITURATES SCREEN NEGATIVE; URINE BENZODIAZEPINES SCREEN NEGATIVE; URINE COCAINE SCREEN NEGATIVE; URINE METHADONE SCREEN NEGATIVE; URINE PHENCYCLIDINE SCREEN NEGATIVE
[2020-11-01 02:23] LABS: URINE MARIJUANA (THC) SCREEN UNCONFIRMED POSITIVE
--- NOTE | 2020-11-01 02:39 | Delivery Summary ---
Del Sum A-C Datetime Report Generated by CPN: 11/01/2020 02:38 DELIVERY PERSONNEL DELIVERY PERSONNEL: [id number] Delivery Doctor:: Cecilio Guevara MD Labor and Delivery Nurse:: Bello Negro RNfield tech Nurse:: NIKKO Fischer Staff Internist Office Based Only/DIRECTOR AUTOMOTIVE: Viancaannetta Foley, ST MATERNAL INFORMATION Delivery Anesthesia: None Medications After Delivery: Pitocin 10 Units IM Estimated Blood Loss (ml): 250 Delivery QBL: 50 Maternal Complications: Precipitous Labor (<3hrs) LABOR SUMMARY EDC: 11/14/2020 00:00 No. Babies in Womb: 1 Attempted: No Labor Anesthesia: None LABOR INFORMATION Reason for Induction: Not Applicable Onset of Labor: 11/01/2020 00:44 Complete Dilatation: 11/01/2020 01:18 Oxytocin: N/A Group B Beta Strep: unk Antibiotics # of Doses: 0 Name of Antibiotic Given: n/a Steroids Given: None Reason Steroids Not Administered: Not Applicable MEMBRANES Membranes Rupture Method: Spontaneous Rupture of Membranes: 11/01/2020 01:18 Length of Rupture (hr): 0.07 Amniotic Fluid Color: Clear Amniotic Fluid Amount: Moderate Amniotic Fluid Odor: Normal STAGES OF LABOR Stage 1 hr: 0 Stage 1 min: 34 Stage 2 hr: 0 Stage 2 min: 4 Stage 3 hr: 0 Stage 3 min: 4 Total Time in Labor hr: 0 Total Time in Labor min: 42 VAGINAL DELIVERY Episiotomy: None Laceration #1: None Laceration Extension #1: N/A Laceration #2: None Laceration Extension #2: N/A Laceration #3: None Laceration Extension #3: N/A Laceration Repair: Not Applicable Sponge Count Correct: Vaginal Sweep Performed Sharps Count Correct: Yes CSECTION DELIVERY Primary Indication: N/A Secondary Indication: N/A CSection Incidence: N/A Labor: N/A Elective: N/A CSection Incision: N/A BABY A INFORMATION Delivery Date/Time: 11/01/2020 01:22 Method of Delivery: Vaginal Nurse Controlled Delivery: No Born in Route : No : N/A Forceps: N/A Vacuum Extraction: N/A Shoulder Dystocia : No PRESENTATION/POSITION BABY A Presentation: Cephalic Cephalic Presentation: Vertex Vertex Position: Left Occipital Anterior Breech Presentation: N/A PLACENTA INFORMATION BABY A Placenta Delivery Time : 11/01/2020 01:26 Placenta Method of Delivery: Spontaneous Placenta Status: Delivered SCORES BABY A Heart Rate 1 min: >100 bpm Resp Effort 1 min: Good Cry Reflex Irritability 1 min: Cough or Sneeze or Pulls Away Muscle Tone 1 min: Active Motion Color 1 min: Blue/Pale Resuscitation Effort 1 min: Tactile Stimulation SCORE 1 MIN: 8 Heart Rate 5 min: >100 bpm Resp Effort 5 min: Good Cry Reflex Irritability 5 min: Cough or Sneeze or Pulls Away Muscle Tone 5 min: Active Motion Color 5 min: Body [place], Extremities Blue Resuscitation Effort 5 min: Tactile Stimulation SCORE 5 MIN: 9 INFORMATION BABY A Gestational Age at Delivery: 38.1 Gestational Status: Early Term- 37- 38.6 Weeks Outcome : Liveborn Infant Condition : Stable Infant Sex: Female IDENTIFICATION BABY A Verification Date/Time: 11/01/2020 01:35 ID Band Number: [id number] Mother's Name Verified: Yes Infant RN Verifying Infant: E Jilek RN Additional Verifying Personnel: D Bellavance RN WEIGHT/LENGTH BABY A Birthweight (gm): 2390 Weight (lb): 5 Weight (oz): 4 Length (in): 18.50 Length (cm): 46.99 CORD INFORMATION BABY A No. Cord Vessels: 3 Nuchal Cord : N/A Cord Blood Taken: Yes-For Storage (Mom's Blood type +) Infant Suction: None ASSESSMENT BABY A Complications: None Physical Findings at Delivery: Within Normal Limits Infant Respirations: Appears Normal Skin to Skin: Yes Skin to Skin Time (min): 30 Cotton Puller/ALS Called : No Care By: D Bellavance RN Transferred To: Remains with Mother BABY B INFORMATION : N/A SIGNATURES Signature: with User ID: [email or web address]
--- NOTE | 2020-11-01 02:39 | Birth Certificate Data ---
Cert Data Datetime Report Generated by CPN: 11/01/2020 02:38 CERTIFICATE DATA Delivery Provider: Cecilio Guevara MD (11/01/2020 00:55:Cecilio Guevara MD ([facility])) 47a. Care: No (11/01/2020 00:55:NIKKO Fischer) 47b. Date of First Visit: 07/14/2020 00:00 (11/01/2020 00:55:NIKKO Fischer) 47c. Date of Last Visit: 10/08/2020 00:00 (11/01/2020 00:55:NIKKO Fischer) 47d. Number of Visits: 4 (11/01/2020 00:55:NIKKO Fischer) 48a. Number of Prev Live Births: 2 (11/01/2020 00:55:NIKKO Fischer) 48b. Now Livin (11/01/2020 00:55:NIKKO Fischer) 48c. Live Births Now : 0 (11/01/2020 00:55:QS system process) 48d. Date of Last Live : 08/13/2004 00:00 (11/01/2020 00:55:NIKKO Fischer) 48e. Losses: 1 (11/01/2020 00:55:NIKKO Fischer) 48f. Date of Last Preg Loss: 11/14/2017 00:00 (11/01/2020 00:55:NIKKO Fischer) RISK FACTORS IN THIS 49a. Diabetes: No (11/01/2020 00:55:NIKKO Fischer) 49b. Hypertension: No (11/01/2020 00:55:NIKKO Fischer) 49c. Previous Births: 0 (11/01/2020 00:55:NIKKO Fischer) 49d. Stillborns: No (11/01/2020 00:55:NIKKO Fischer) 49d. IUGR: No (11/01/2020 00:55:NIKKO Fischer) 49e. Infertility Treatment: No (11/01/2020 00:55:NIKKO Fischer) 49f. Previous Cesareans: 0 (11/01/2020 00:55:NIKKO Fischer) Mother's Height 50b. Height Inches: 60 (11/01/2020 01:04:QS system process) Mother's Weight 51a. Pre- Weight (lbs): 113 (11/01/2020 00:55:Janettemily Juarez [facility]) 51b. Weight at Delivery (lbs): 222 (11/01/2020 01:22:QS system process) 52. Dt Last Normal Menses Began: 02/08/2020 00:00 (11/01/2020 00:55:Bello Negro RN) Infections Present/Treated 53a. Gonorrhea: No (11/01/2020 00:55:NIKKO Fischer) Results this Hospital Visit : Unknown (11/01/2020 00:55:NIKKO Fischer) 53b. Syphilis: No (11/01/2020 00:55:NIKKO Fischer) 53c. Chlamydia: No (11/01/2020 00:55:Janett Juarez, RN) Results this Hospital Visit: unk (11/01/2020 00:55:NIKKO Fischer) 53d. Hepatitis B: No (11/01/2020 00:55:Janett Juarez, RNOxana) Results this Hospital Visit: Negative (11/01/2020 00:55:NIKKO Fischer) 53e. Hepatitis C: Negative (11/01/2020 00:55:NIKKO Fischer) 53h. Mother Tested for HBsAG: Yes (11/01/2020 00:55:NIKKO Fischer) 53i. Date Tested: 08/04/2020 00:00 (11/01/2020 00:55:NIKKO Fischer) 53j. Test Result: Negative (11/01/2020 00:55:NIKKO Fischer) Obstetric Procedures 54a, b, c. Obstetric Procedures: Ultrasound (11/01/2020 00:55:NIKKO Fischer) Cigarette Smoking Cigarette Smoking: Current Everyday Smoker. [id number] (11/01/2020 00:55:Bello Negro RN) 55a. Packs: 2 (11/01/2020 00:55:Belol Negro RN) 55b. Packs: 2 (11/01/2020 00:55:Bello Negro RN) 55c. Packs: 2 (11/01/2020 00:55:Bello Negro RN) 55d. Packs: 2 (11/01/2020 00:55:Bello Negro RN) Onset of Labor 56a. PROM >12 Hrs: 0.07 (11/01/2020 00:55:QS system process) 56b. Precipitous Labor <3 Hrs: 0 (11/01/2020 00:55:QS system process) 56c. Prolonged Labor > 20 Hrs: 0 (11/01/2020 00:55:QS system process) 57a. Induction of Labor: N/A (11/01/2020 00:55:NIKKO Fischer) 57c. Non-Vertex Presentation A: Vertex (11/01/2020 00:55:Cecilio Guevara MD ([facility])) 57d. Steroids - Lung Mat: None (11/01/2020 00:55:Cecilio Guevara MD ([facility])) 57d. Steroids - Lung Mat: Not Applicable (11/01/2020 00:55:Cecilio Guevara MD ([facility])) 57f. Mat [place] or Temp >100.4: 97.0 (11/01/2020 00:55:Bello Negro RN) 57g. Moderate/Heavy Meconium: Clear (11/01/2020 01:18:Bello Negro RN) 57h. Intolerance of Labor: N/A (11/01/2020 00:55:Bello Negro RN) : N/A (11/01/2020 00:55:Bello Negro RN) 57i. Epidural/Spinal Anesthesia: None (11/01/2020 00:55:Cecilio Guevara MD ([facility])) Method of Delivery 58a. Forceps - Unsuccessful A: N/A (11/01/2020 00:55:NIKKO Fischer) 58b. Vacuum - Unsuccessful A: N/A (11/01/2020 00:55:NIKKO Fischer) 58c. Presentation at 58c. Presentation at - A : Vertex (11/01/2020 00:55:Cecilio Guevara MD ([facility])) 58c. Presentation at - A : N/A (11/01/2020 00:55:Cecilio Guevara MD ([facility])) 58c. Presentation at - A : Cephalic (11/01/2020 00:55:Cecilio Guevara MD ([facility])) Final Route and Method of Del 58d. Baby A Route/Delivery: Vaginal (11/01/2020 01:22:Bello Negro RN) 58e. Trial of Labor Attempted: No (11/01/2020 00:55:NIKKO Fischer) 58e. Trial of Labor Attempted A: N/A (11/01/2020 00:55:Janett Bellavance, RNC) 58e. Trial of Labor Attempted B: N/A (11/01/2020 00:55:Janett Ann, RNC) Maternal Morbidity 59b. 3rd or 4th Degree Lacs: None (11/01/2020 00:55:Cecilio Guevara MD ([facility])) Birthweight Baby A: 2390 (11/01/2020 00:55:Bello Negro RN) 60a. Pounds : 5 (11/01/2020 00:55:QS system process) 60b. Ounces: 4 (11/01/2020 00:55:QS system process) 61. GA at Delivery Baby A: 38.1 (11/01/2020 00:55:Janett Ann, [facility]) : Early Term- 37- 38.6 Weeks (11/01/2020 00:55:QS system process) 62a. 5 Minute Baby A: 9 (11/01/2020 00:55:QS system process)
[2020-11-01 03:29] LABS: CHLAM PCR NOT DETECTED (NOT DETECT)
[2020-11-01] MEDS: IBUPROFEN 800 MG TABLET PO SCH ×3 (06:31→21:42)
[2020-11-01] MEDS: DOCUSATE SODIUM 100 MG CAPSULE PO SCH ×2 (09:14→17:19)
[2020-11-01] MEDS: FERROUS SULFATE 325 MG TABLET PO SCH ×2 (09:14→17:19)
[2020-11-01] MEDS: PRENATAL VITAMIN W DHA CAPSULE PO SCH (09:14)
[2020-11-01] MEDS: SENNOSIDES/DOCUSATE 8.6-50 MG 1 EACH TABLET PO SCH (09:14)
[2020-11-02] MEDS: IBUPROFEN 800 MG TABLET PO SCH ×3 (05:05→22:16)
[2020-11-02 07:09] LABS: HEMATOCRIT 35.1 % (36.0-47.0); HEMOGLOBIN 12.3 g/dL (12.0-15.5); MEAN CORPUSCULAR HEMOGLOBIN 32.9 pg (27.0-33.4); MEAN CORPUSCULAR HGB CONC 34.9 g/dL (32.0-36.0); MEAN CORPUSCULAR VOLUME 94 fl (80-97); PLATELET COUNT 213 10^3/uL (150-450); RED BLOOD COUNT 3.72 10^6/uL (3.72-5.28); RED CELL DISTRIBUTION WIDTH 13.4 % (11.5-14.0)
[2020-11-02] MEDS ORDERED: INFLUENZA QUAD (6MOS+) 2020-21 VAC 0.5 ML SYR IM ONE (08:00)
[2020-11-02] MEDS: PRENATAL VITAMIN W DHA CAPSULE PO SCH (10:05)
[2020-11-02] MEDS: SENNOSIDES/DOCUSATE 8.6-50 MG 1 EACH TABLET PO SCH (10:05)
[2020-11-02] MEDS: FERROUS SULFATE 325 MG TABLET PO SCH ×2 (10:05→18:29)
[2020-11-02] MEDS: DOCUSATE SODIUM 100 MG CAPSULE PO SCH ×2 (10:05→18:30)
[2020-11-02] MEDS ORDERED: LORAZEPAM 0.5 MG TABLET PO PRN (11:31)
--- NOTE | 2020-11-02 11:31 | PDOC PROGRESS REPORT ---
Subjective-OB Progress Note for:: 11/02/20 Subjective: reports bleeding slowing, pain controlled with current meds. c/o anxiety, has taken xanax in the past but didn't like how it made her feel. discussed Pride and CCNC. will try low dose ativan for now Physical Exam (OB) Vital Signs: Temp Pulse Resp BP Pulse Ox 98.0 F 77 16 109/74 98 11/02/20 08:10 11/02/20 07:12 11/02/20 07:12 11/02/20 07:12 11/02/20 07:12 Intake & Output 11/01/20 11/02/20 11/03/20 06:59 06:59 06:59 Weight 45.586 kg - Maternal Morbidity 59. Maternal Morbidity (serious complications experinced by the mother assoc iated with labor and delivery: None of the above - Abdomen Description: Soft Hernia Present: No Fundal Description: Firm, Midline Fundal Height: u/u - u/2 - Abdominal Distension: No distension Tenderness: Nontender - Extremities Lower extremities: Kiana's sign - neg Calf: Normal, Nontender Objective-Diagnostic Laboratory: 11/02/20 06:50 11/02/20 06:50 WBC 16.0 H RBC 3.72 Hgb 12.3 Hct 35.1 L MCV 94 MCH 32.9 MCHC 34.9 RDW 13.4 Plt Count 213 Assessment and Plan(PN) - Assessment and Plan (1) Active labor at term Is this a current diagnosis for this admission?: Yes (2) Labor, precipitous, delivered Is this a current diagnosis for this admission?: Yes (3) Limited care, antepartum Is this a current diagnosis for this admission?: Yes - Time Spent with Patient Time with patient: Less than 15 minutes Medications reviewed and adjusted accordingly: Yes - Disposition Anticipated Discharge Disposition: Home, Self Care Anticipated Discharge Timeframe: within 24 hours
[2020-11-03] MEDS: IBUPROFEN 800 MG TABLET PO SCH ×2 (05:24→14:31)
[2020-11-03 08:26] VITALS: BP 114/82
[2020-11-03] MEDS: DOCUSATE SODIUM 100 MG CAPSULE PO SCH (10:19)
[2020-11-03] MEDS: PRENATAL VITAMIN W DHA CAPSULE PO SCH (10:19)
[2020-11-03] MEDS: SENNOSIDES/DOCUSATE 8.6-50 MG 1 EACH TABLET PO SCH (10:19)
[2020-11-03] MEDS: FERROUS SULFATE 325 MG TABLET PO SCH (10:20)
--- NOTE | 2020-11-03 10:28 | PDOC DISCHARGE SUMMARY ---
Impression - Admit/DC Date/PCP Admission Date/Primary Care Provider: 11/01/20 01:03 YAO CARDENAS MD Discharge Date: 11/03/20 - PP day #2, doing well, baby under the bili-lights, so may need to nest. Limited PNC, A+. Rubella immmune, breast and bottlefeeding - Discharge Diagnosis (1) Active labor at term Is this a current diagnosis for this admission?: Yes (2) Labor, precipitous, delivered Is this a current diagnosis for this admission?: Yes (3) Limited care, antepartum Is this a current diagnosis for this admission?: Yes (4) Normal vaginal delivery of fourth Is this a current diagnosis for this admission?: Yes (5) Tetrahydrocannabinol (THC) use disorder, mild, abuse Is this a current diagnosis for this admission?: Yes - Additional Information Resuscitation Status: Full Code Discharge Diet: As Tolerated, Regular Discharge Activity: Activity As Tolerated Referrals: YAO CARDENAS MD [Primary Care Provider] - Prescriptions: Ibuprofen [Motrin 800 mg Tablet] 800 mg PO Q8 #60 tablet Home Medications: Ibuprofen [Motrin 800 mg Tablet] 800 mg PO Q8 #60 tablet 11/03/20 Vit/Dha [ Multi + Dha Capsule] 1 cap PO DAILY capsule 11/03/20 HPI Reason(s) for Admission: Onset of Labor Procedures: Other - limited PN Hospital Course 59. Maternal Morbidity (serious complications experinced by the mother associated with labor and delivery: None of the above Results Laboratory Results: WBC 16.0 10^3/uL (4.0-10.5) H 11/02/20 06:50 RBC 3.72 10^6/uL (3.72-5.28) 11/02/20 06:50 Hgb 12.3 g/dL (12.0-15.5) 11/02/20 06:50 Hct 35.1 % (36.0-47.0) L 11/02/20 06:50 MCV 94 fl (80-97) 11/02/20 06:50 MCH 32.9 pg (27.0-33.4) 11/02/20 06:50 MCHC 34.9 g/dL (32.0-36.0) 11/02/20 06:50 RDW 13.4 % (11.5-14.0) 11/02/20 06:50 Plt Count 213 10^3/uL (150-450) 11/02/20 06:50 Lymph % (Auto) 21.6 % (13-45) 11/01/20 01:33 [place] % (Auto) 8.1 % (3-13) 11/01/20 01:33 Eos % (Auto) 1.0 % (0-6) 11/01/20 01:33 Baso % (Auto) 0.4 % (0-2) 11/01/20 01:33 Absolute Neuts (auto) 10.1 10^3/uL (1.7-8.2) H 11/01/20 01:33 Absolute Lymphs (auto) 3.2 10^3/uL (0.5-4.7) 11/01/20 01:33 Absolute Monos (auto) 1.2 10^3/uL (0.1-1.4) 11/01/20 01:33 Absolute Eos (auto) 0.1 10^3/uL (0.0-0.6) 11/01/20 01:33 Absolute Basos (auto) 0.1 10^3/uL (0.0-0.2) 11/01/20 01:33 Seg Neutrophils % 68.9 % (42-78) 11/01/20 01:33 Urine Color YELLOW 11/01/20 00:45 Urine Appearance CLOUDY 11/01/20 00:45 Urine pH 6.0 (5.0-9.0) 11/01/20 00:45 Ur Specific [place] 1.012 11/01/20 00:45 Urine Protein 30 mg/dL (NEGATIVE) H 11/01/20 00:45 Urine Glucose (UA) NEGATIVE mg/dL (NEGATIVE) 11/01/20 00:45 Urine Ketones 20 mg/dL (NEGATIVE) H 11/01/20 00:45 Urine Blood MODERATE (NEGATIVE) H 11/01/20 00:45 Urine Nitrite NEGATIVE (NEGATIVE) 11/01/20 00:45 Urine Bilirubin NEGATIVE (NEGATIVE) 11/01/20 00:45 Urine Urobilinogen 2.0 mg/dL (<2.0) H 11/01/20 00:45 Ur Leukocyte Esterase LARGE (NEGATIVE) H 11/01/20 00:45 Urine Ascorbic Acid NEGATIVE (NEGATIVE) 11/01/20 00:45 Urine Opiates Screen NEGATIVE 11/01/20 00:45 Urine Methadone Screen NEGATIVE 11/01/20 00:45 Ur Barbiturates Screen NEGATIVE 11/01/20 00:45 Ur Phencyclidine Scrn NEGATIVE 11/01/20 00:45 Ur Amphetamines Screen NEGATIVE 11/01/20 00:45 U Benzodiazepines Scrn NEGATIVE 11/01/20 00:45 Urine Cocaine Screen NEGATIVE 11/01/20 00:45 U Marijuana (THC) Screen UNCONFIRMED POSITIVE 11/01/20 00:45 RPR NONREACTIVE (NONREACTIVE) 11/01/20 01:33 Chlamydia DNA (PCR) NOT DETECTED (NOT DETECT) 11/01/20 00:45 N.gonorrhoeae DNA (PCR) NOT DETECTED (NOT DETECT) 11/01/20 00:45 Blood Type A POSITIVE 11/01/20 01:33 Antibody Screen NEGATIVE 11/01/20 01:33 Plan Plan of Treatment: pt to nest overnight, f/up for PP check up in 4 wks
== END 2020-11-03 16:20 | disposition home or self-care (01) | DRG 806 ==
LOC: LC 00:39 → LR 01:03 → 2S 03:27
PROVIDERS: ADMIT Obstetrics & Gynecology; ATTEND Obstetrics & Gynecology
PROC: 10E0XZZ Delivery of Products of Conception, External Approach (ICD-10-PCS; principal; 2020-11-01)
DX: O99.344 Other mental disorders complicating childbirth (principal); O99.324 Drug use complicating childbirth; O62.3 Precipitate labor; Z37.0 Single live birth; Z3A.38 38 weeks gestation of pregnancy; F12.10 Cannabis abuse, uncomplicated; Z28.21 Immunization not carried out because of patient refusal; Z88.2 Allergy status to sulfonamides; Z88.0 Allergy status to penicillin; F41.9 Anxiety disorder, unspecified; F32.9 Major depressive disorder, single episode, unspecified
CPT/HCPCS: 36415; 80307; 80349; 81005; 85025; 85027; 86592; 86850; 86900; 86901; 87077; 87081; 87491; 87591; G0480; J2590; J3370; J3490; J7060